=== PATIENT | female | born 1965 | race Caucasian/White ===

== ENCOUNTER 2024-08-15 19:15 | Inpatient (IN) | payer BC, MEDICAID ==
[~2024-08-15] VITALS: Ht 157.5 cm; Wt 44.9 kg
[2024-08-15 20:01] LABS: BASOPHILS % 0.2 % (0.0-2.0); DIFFERENTIAL COMMENT 0; EOSINOPHILS % 0.2 % (0.0-5.0); HEMATOCRIT. 39.4 % (36.0-48.0); HEMOGLOBIN. 13.2 g/dL (12.0-16.0); LYMPHOCYTES % 41.5 % (20.0-50.0); MEAN CORPUSCULAR HGB CONC 33.6 g/dL (31.0-37.0); MONOCYTES % 8.1 % (2.0-8.0); PLATELET 237 x1000/uL (130-400); RED CELL DISTRIBUTION WIDTH 13.5 % (11.6-14.6)
[2024-08-15 20:08] LABS: CHLORIDE 102 mEq/L (98-107); SODIUM 142 mEq/L (136-145)
[2024-08-15 20:09] LABS: CALCIUM 8.4 mg/dL (8.7-10.4); CARBON DIOXIDE 30 mEq/L (21-32)
[2024-08-15 20:10] LABS: INR 0.9; PROTHROMBIN TIME 10.6 sec (9.6-11.0)
[2024-08-15 20:14] LABS: CREATININE 0.4 mg/dL (0.6-1.0); GLUCOSE 99 mg/dL (70-105)
[2024-08-15 20:15] LABS: TROPONIN I HIGH SENSITIVITY 5 ng/L (3.0-34)
[2024-08-15 20:16] LABS: ALANINE AMINOTRANSFERASE 60 IU/L (10-49); ALBUMIN 3.3 g/dL (3.2-4.8); ASPARTATE AMINOTRANSFERASE 142 IU/L (<34); BILIRUBIN DIRECT 0.1 mg/dL (<=3.0)
[2024-08-15 20:17] LABS: BILIRUBIN TOTAL 0.3 mg/dL (0.1-1.0); PROTEIN TOTAL 6.5 g/dL (6.0-8.3)
[2024-08-15 21:04] LABS: UREA NITROGEN BLOOD < 5 mg/dL (9-23)
[2024-08-15 21:07] LABS: ETHANOL BLOOD 527 mg/dL (<10); POTASSIUM 2.7 mEq/L (3.5-5.1)
[2024-08-15] MEDS: HALOPERIDOL LACTATE 5MG/ML VIAL IM ONE (23:37)
[2024-08-15] MEDS: DIPHENHYDRAMINE 50MG/ML VIAL IM ONE (23:37)
[2024-08-16] MEDS ORDERED: KCL 10MEQ/50ML PREMIX 50 ML IV ONE
[2024-08-16] MEDS: KCL 10MEQ/50ML PREMIX 50 ML IV SCH (02:34)
[2024-08-16 04:00] VITALS: BP 121/73; PULSE 72; RESP 14; TEMP 36.44736; TEMP 36.4736; O2SAT 99
[2024-08-16] MEDS: POTASSIUM CHLORIDE 20MEQ TABLET SR PO NR (04:04)
[2024-08-16] MEDS: POTASSIUM CHLORIDE 20MEQ/PACKET PO NR (04:04)
[2024-08-16] MEDS ORDERED: ONDANSETRON HCL 4MG/2ML INJ IV PRN (05:15)
[2024-08-16] MEDS ORDERED: MAGNESIUM/ALUMINUM HYDROXIDE/SIMETHICONE 30ML UDC PO PRN (05:15)
[2024-08-16] MEDS ORDERED: IPRATROPIUM/ALBUTEROL 0.5-3(2.5)MG/3ML NEB HHN PRN (05:15)
[2024-08-16] MEDS ORDERED: CLONIDINE 0.1MG TABLET PO PRN (05:15)
[2024-08-16] MEDS ORDERED: ACETAMINOPHEN 325MG TABLET PO PRN (05:15)
[2024-08-16] MEDS ORDERED: LORAZEPAM 2MG/ML INJ IV PRN (05:15)
[2024-08-16] MEDS: CHLORDIAZEPOXIDE 10MG CAPSULE PO SCH (05:34)
[2024-08-16] MEDS: MVI, ADULT NO.1 10 ML, FOLIC ACID 1 MG, THIAMINE HCL 100 MG in SODIUM CHLORIDE 0.9% 1,0... IV SCH (05:36)
[2024-08-16] MEDS: LORAZEPAM 2MG/ML INJ IV PRN (05:40)
[2024-08-16] MEDS ORDERED: ESZO3TAB40 PO (05:58)
[2024-08-16] MEDS ORDERED: GABA-1180 PO (05:58)
[2024-08-16] MEDS ORDERED: DIAZ10TA4 PO (05:58)
[2024-08-16 08:00] VITALS: BP 114/71; PULSE 105; RESP 17; TEMP 36.44736; O2SAT 97
[2024-08-16] MEDS: LACTATED RINGERS 1,000 ML IV SCH (08:38)
[2024-08-16] MEDS: GABAPENTIN 300MG CAPSULE PO SCH (08:47)
[2024-08-16] MEDS: THIAMINE HCL 100MG TABLET PO SCH (08:47)
[2024-08-16 12:00] VITALS: BP 124/84; PULSE 64; RESP 18; TEMP 36.28068; O2SAT 97
[2024-08-16 12:33] LABS: CHLORIDE 106 mEq/L (98-107); SODIUM 142 mEq/L (136-145)
[2024-08-16 12:35] LABS: CALCIUM 8.1 mg/dL (8.7-10.4); CARBON DIOXIDE 25 mEq/L (21-32)
[2024-08-16 12:38] LABS: TROPONIN I HIGH SENSITIVITY 6 ng/L (3.0-34)
[2024-08-16 12:40] LABS: CREATININE 0.3 mg/dL (0.6-1.0); GLUCOSE 72 mg/dL (70-105)
[2024-08-16 12:41] LABS: VITAMIN B12 SERUM 651 pg/mL (211-911)
[2024-08-16 12:42] LABS: ALANINE AMINOTRANSFERASE 56 IU/L (10-49); ASPARTATE AMINOTRANSFERASE 151 IU/L (<34); BILIRUBIN TOTAL 0.4 mg/dL (0.1-1.0); CREATINE KINASE 461 IU/L (34-145); PHOSPHORUS 1.9 mg/dL (2.5-4.9); PROTEIN TOTAL 6.2 g/dL (6.0-8.3)
[2024-08-16 12:53] LABS: UREA NITROGEN BLOOD < 5 mg/dL (9-23)
[2024-08-16 13:05] LABS: FOLIC ACID (FOLATE) SERUM > 20.00 ng/mL (>5.38)
[2024-08-16] MEDS ORDERED: POTASSIUM PHOSPHATE 20 MMOL in DEXT 5% WATER 243.3333 ML IV SCH (14:00)
[2024-08-16 16:00] VITALS: BP 117/74; PULSE 103; RESP 18; TEMP 36.6696; TEMP 36.66960; O2SAT 96
[2024-08-16] MEDS ORDERED: LORAZEPAM 1MG TABLET PO PRN (16:00)
[2024-08-16] MEDS: KCL 10MEQ/50ML PREMIX 50 ML IV ONE (16:33)
[2024-08-16] MEDS: MAGNESIUM 4 G PREMIX 100 ML IV NR (16:35)
[2024-08-16] MEDS ORDERED: MAGN400T26 MT (18:22)
[2024-08-16] MEDS ORDERED: MAGNESIUM OXIDE 400MG TABLET PO NR (19:15)
[2024-08-16 19:18] VITALS: BP 119/82; PULSE 98; TEMP 98; O2SAT 98
[2024-08-16] MEDS ORDERED: POTASSIUM-SODIUM PHOSPHATE POWDER PACKET PO NR (20:00)
== END 2024-08-16 19:00 | disposition home or self-care (01) | DRG 640 ==
LOC: ER 19:15 → 5WST 08-16 02:32
PROVIDERS: ADMIT Preventive Medicine Clinical Informatics; ATTEND Preventive Medicine Clinical Informatics
DX: E87.6 Hypokalemia (principal); G92.8 Other toxic encephalopathy; F10.229 Alcohol dependence with intoxication, unspecified; D75.89 Other specified diseases of blood and blood-forming organs; G62.9 Polyneuropathy, unspecified; K58.9 Irritable bowel syndrome, unspecified; Y90.8 Blood alcohol level of 240 mg/100 ml or more; K76.0 Fatty (change of) liver, not elsewhere classified; N32.89 Other specified disorders of bladder; F41.9 Anxiety disorder, unspecified; G47.00 Insomnia, unspecified; Z79.899 Other long term (current) drug therapy
CPT/HCPCS: 36415; 71045; 74176; 80048; 80053; 80076; 80320; 82550; 82607; 82746; 83735; 84100; 84484; 85025; 93005; 93970; 97166; 99291; 99292; J1200; J1630; J2060; J3411; J3475; J3480; J3490; J7030; J7060; J7120; G0480